=== PATIENT | male | born 1950 | race Caucasian/White ===

== ENCOUNTER 2018-02-10 07:41 | Day surgery (SDC) | payer MEDICARE, OTHER ==
[2018-02-10] MEDS ORDERED: Lactated Ringers 1,000 ML IV SCH (07:45)
[2018-02-10] MEDS ORDERED: Propofol 200 MG/20 ML SDV IV ONE (08:45)
[2018-02-10] MEDS ORDERED: Midazolam 1 MG/ML 2 ML SDV IV ONE (08:45)
[2018-02-10] MEDS ORDERED: Simethicone Drops 40 MG/0.6 ML 30 ML Bottle ONE (08:57)
--- NOTE | 2018-02-10 09:11 | PCM.OPNOTE ---
- General Post-Op/Procedure Note Date of Surgery/Procedure: 02/10/18 Operative Procedure(s): c scope with bx Findings: descending colon polyp Pre Op Diagnosis: screening Post-Op Diagnosis: colon polyp Anesthesia Technique: MAC Primary Surgeon: Andrei Milner Anesthesia Provider: Darinel Bustillo Pathology: desc colon polyp Complications: None Condition: Good Free Text/Narrative:: see dictation #[id number]
--- NOTE | 2018-02-10 10:10 | OR ---
DATE OF OPERATION: 02/10/2018 SURGEON: Andrei Milner MD PROCEDURES PERFORMED: Colonoscopy with cold forceps biopsy. PREOPERATIVE DIAGNOSIS: Need for screening C-scope. POSTOPERATIVE DIAGNOSIS: Descending colon polyp. INDICATIONS FOR PROCEDURE: This is a 67-year-old white male who presents for screening colonoscopy. He was offered and accepted same. DESCRIPTION OF OPERATION: After an excellent IV sedation was administered, digital rectal exam was performed. No marked abnormality was noted. The flexible colonoscope was inserted and advanced to the cecum without difficulty. The prep was excellent. The following findings were noted. Ascending colon, unremarkable. Transverse colon, unremarkable. Descending colon, a 3-mm polyp, biopsied with cold biopsy forceps and sent for permanent. Sigmoid, unremarkable. Rectum and anus, unremarkable. Colon was deflated. Scope was removed. Results by letter with followup being determined by Pathology. /[id number] /MODL
== END 2018-02-10 10:10 | disposition home or self-care (01) ==
LOC: FB.SDS 07:41
PROVIDERS: ATTEND Surgery
DX: Z12.11 Encounter for screening for malignant neoplasm of colon (principal); D12.4 Benign neoplasm of descending colon; I10 Essential (primary) hypertension; E66.01 Morbid (severe) obesity due to excess calories; Z68.41 Body mass index [BMI] 40.0-44.9, adult; Z79.82 Long term (current) use of aspirin; Z79.899 Other long term (current) drug therapy; Z88.1 Allergy status to other antibiotic agents; Z83.71 Family history of colonic polyps
CPT/HCPCS: 00812-QZ; 88305; A9270-GY; J2250; J2704; J7120

== ENCOUNTER 2020-03-16 08:56 | Emergency (ER) | payer MEDICARE, OTHER ==
[2020-03-16] MEDS ORDERED: Sodium Chloride 0.9% 1,000 ML IV ONE (09:29)
[2020-03-16] MEDS ORDERED: Morphine 2 MG/ML Syringe IVPUSH ONE (09:36)
[2020-03-16] MEDS ORDERED: Ondansetron 4 MG/2 ML SDV IVPUSH ONE (09:37)
[2020-03-16] MEDS ORDERED: Ketorolac 30 MG/ML SDV IVPUSH ONE (10:55)
--- NOTE | 2020-03-16 12:31 | ER ---
DATE SEEN: 03/16/2020 CHIEF COMPLAINT: Abdominal pain. HISTORY OF PRESENT ILLNESS: This is a 69-year-old male who had pain in the right flank for the last month, sharp but got worse today, radiates to the groin. Denies any urinary symptoms. PAST MEDICAL HISTORY: Hypertension, has a history of kidney stones more than 10 years ago. SOCIAL HISTORY: Noncontributory. REVIEW OF SYSTEMS: All other systems negative. PHYSICAL EXAMINATION: GENERAL: He is not in distress. He is well hydrated. VITAL SIGNS: Blood pressure 158/73, temperature 97.5. ABDOMEN: Soft, tender at the right costovertebral angle area. MUSCULOSKELETAL: Normal. CHEST AND HEART: Normal to auscultation. LABORATORY DATA: UA showed moderate urine, 5 [address] of the abdomen and pelvis kidney protocol revealed eight 8 mm to 9 mm size stone. IMPRESSION: Ureteric calculi. PLAN: I gave him, initially got 2 mg of IV morphine and then I gave him 15 mg of Toradol. I discharged him on Percocet. Recommended drinking lots of fluids. He already takes Flomax. Referral was placed at the [facility] for a non- urgent consultation with Urology. /[id number] LINN/SUDARSHAN
== END 2020-03-16 11:52 | disposition home or self-care (01) ==
LOC: FB.ED 08:56
DX: N13.2 Hydronephrosis with renal and ureteral calculous obstruction (principal)
CPT/HCPCS: 36415; 74176; 80048; 81001; 85025; 96374; 96375; 99282; 99284-25; J1885; J2270; J2405; J7030